=== PATIENT | female | born 1990 | race African-American/Black ===

== ENCOUNTER 2018-06-21 10:22 | Inpatient (IN) | payer OTHER ==
[2018-06-21 10:46] VITALS: BMI 39.9
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
[2018-06-21] MEDS ORDERED: guaiFENesin/D-METHORPHAN HB 10 ML UNIT-DOSE CUPS PO PRN (12:13)
[2018-06-21] MEDS ORDERED: LOPERAMIDE HCL 2 MG CAPSULE PO PRN (12:13)
[2018-06-21] MEDS ORDERED: MAG HYDROX/AL HYDROX/SIMETH 30 ML UNIT-DOSE CUP PO PRN (12:13)
[2018-06-21] MEDS ORDERED: MAGNESIUM CITRATE 300 ML BOTTLE PO PRN (12:13)
[2018-06-21] MEDS ORDERED: MENTHOL/PHENOL 1 EACH UD MM PRN (12:13)
[2018-06-21] MEDS ORDERED: P-EPHED 60MG/TRIPROLIDI 2.5MG TABLET PO PRN (12:13)
[2018-06-21] MEDS ORDERED: MAGNESIUM HYDROX 2400MG/30ML ORAL SUSPENSION 30 ML CUP PO PRN (12:13)
[2018-06-21] MEDS ORDERED: ACETAMINOPHEN 325 MG TABLET (FP) PO PRN (12:13)
[2018-06-21] MEDS ORDERED: chlordiazePOXIDE HCL 25 MG CAPSULE PO PRN (12:15)
[2018-06-21] MEDS: NICOTINE 21 MG/24 HOURS TOPICAL PATCH TD SCH (15:48)
[2018-06-21] MEDS: chlordiazePOXIDE HCL 25 MG CAPSULE PO SCH ×2 (17:59→22:36)
[2018-06-21 21:03] LABS: URINE APPEARANCE SLCLOUDY; URINE BILIRUBIN NEGATIVE (<2.0 mg/dL); URINE COLOR YELLOW; URINE GLUCOSE (UA) NEGATIVE (NEGATIVE); URINE KETONE NEGATIVE (NEGATIVE); URINE LEUK ESTERASE 1+ (NEGATIVE); URINE NITRITE NEGATIVE (NEGATIVE); URINE PROTEIN NEGATIVE (NEGATIVE)
[2018-06-21 21:10] LABS: EPI CELLS MANY /HPF (FEW); URINE MUCUS RARE
[2018-06-21] MEDS ORDERED: MELATONIN 5 MG TABLETS PO PRN (22:00)
[2018-06-21] MEDS: THIAMINE HCL 100 MG TABLET (FP) PO SCH (22:36)
[2018-06-22] MEDS: IBUPROFEN 400 MG TABLET (FP) PO PRN ×2 (06:40→17:42)
[2018-06-22] MEDS: chlordiazePOXIDE HCL 25 MG CAPSULE PO SCH ×2 (06:40→10:31)
[2018-06-22] MEDS ORDERED: PRENATAL VITAMINS W/ FOLIC ACID TABLET (FP) PO SCH (10:00)
[2018-06-22] MEDS: NICOTINE 21 MG/24 HOURS TOPICAL PATCH TD SCH (10:33)
[2018-06-22 11:24] LABS: ALBUMIN 3.2 g/dl (3.4-5.0); ALK PHOS 74 U/L (45-117); ANION GAP 9 MMOL/L (8-16); BILIRUBIN,TOTAL 0.6 mg/dL (0.2-1); BLOOD UREA NITROGEN 9 mg/dL (7-18); CALCIUM 8.5 mg/dL (8.5-10.1); CHLORIDE 106 mmol/L (98-107); CO2 25 mmol/L (21-32); CREATININE 0.9 mg/dL (0.55-1.3); GLUCOSE,RANDOM 105 mg/dL (74-106); POTASSIUM 3.8 mmol/L (3.5-5.1); SGOT/AST 15 U/L (15-37); SGPT/ALT 18 U/L (13-61); SODIUM 140 mmol/L (136-145); TOT PROT 6.9 g/dl (6.4-8.2)
[2018-06-22] MEDS ORDERED: COLLOIDAL OATMEAL 1 BAR EACH TP PRN (11:29)
[2018-06-22] MEDS ORDERED: MINERAL OIL/PETROLAT/WATER TOPICAL CREAM 113 GM JAR TP SCH (11:30)
--- NOTE | 2018-06-22 11:33 | PN ---
S CIWA - CIWA Score Nausea/Vomitin-Mild Nausea/No Vomiting Muscle Tremors: 3 Anxiety: 2 Agitation: 2 Paroxysmal Sweats: 1-Minimal Palms Moist Orientation: 1-Uncertain about Date Tacttile Disturbances: 1-Very Mild Itch/Numbness Auditory Disturbances: 0-None Visual Disturbances: 0-None Headache: 1-Very Mild CIWA-Ar Total Score: 12 BHS Progress Note (SOAP) Subjective: tremor sweat itchy skin Objective: 06/22/18 11:33 Vital Signs Temperature 98.6 F 06/22/18 09:27 Pulse Rate 90 06/22/18 09:27 Respiratory Rate 18 06/22/18 09:27 Blood Pressure 135/62 06/22/18 09:27 O2 Sat by Pulse Oximetry (%) Laboratory Last Values Sodium 140 mmol/L (136-145) 06/22/18 07:35 Potassium 3.8 mmol/L (3.5-5.1) 06/22/18 07:35 Chloride 106 mmol/L (98-107) 06/22/18 07:35 Carbon Dioxide 25 mmol/L (21-32) 06/22/18 07:35 Anion Gap 9 MMOL/L (8-16) 06/22/18 07:35 BUN 9 mg/dL (7-18) 06/22/18 07:35 Creatinine 0.9 mg/dL (0.55-1.3) 06/22/18 07:35 Creat Clearance w eGFR > 60 (>60) 06/22/18 07:35 Random Glucose 105 mg/dL (74-106) 06/22/18 07:35 Calcium 8.5 mg/dL (8.5-10.1) 06/22/18 07:35 Total Bilirubin 0.6 mg/dL (0.2-1) 06/22/18 07:35 AST 15 U/L (15-37) 06/22/18 07:35 ALT 18 U/L (13-61) 06/22/18 07:35 Alkaline Phosphatase 74 U/L (45-117) 06/22/18 07:35 Total Protein 6.9 g/dl (6.4-8.2) 06/22/18 07:35 Albumin 3.2 g/dl (3.4-5.0) L 06/22/18 07:35 Urine Color Yellow 06/21/18 14:46 Urine Appearance Slcloudy 06/21/18 14:46 Urine pH 7.0 (5.0-8.0) 06/21/18 14:46 Ur Specific [place] 1.025 (1.010-1.035) 06/21/18 14:46 Urine Protein Negative (NEGATIVE) 06/21/18 14:46 Urine Glucose (UA) Negative (NEGATIVE) 06/21/18 14:46 Urine Ketones Negative (NEGATIVE) 06/21/18 14:46 Urine Blood Negative (NEGATIVE) 06/21/18 14:46 Urine Nitrite Negative (NEGATIVE) 06/21/18 14:46 Urine Bilirubin Negative (<2.0 mg/dL) 06/21/18 14:46 Urine Urobilinogen 2.0 mg/dL (0.2-1.0) H 06/21/18 14:46 Ur Leukocyte Esterase 1+ (NEGATIVE) H 06/21/18 14:46 Urine WBC (Auto) 16 /hpf (3-5) 06/21/18 14:46 Urine RBC (Auto) 3 /hpf (0-3) 06/21/18 14:46 Ur Epithelial Cells Many /HPF (FEW) 06/21/18 14:46 Urine Mucus Rare 06/21/18 14:46 RPR Titer Nonreactive (NONREACTIVE) 06/22/18 07:35 lab noted uti Assessment: 06/22/18 11:35 withdrawal sx 06/22/18 11:36 uti Plan: continue detox bactrim ds bid
[2018-06-22 11:34] LABS: HEMOGLOBIN 14.7 GM/dL (10.7-15.3); MCH 32.5 pg (25.7-33.7); MCHC 34.1 g/dl (32.0-36.0); MEAN CELL VOLUME 95.3 fl (80-96); MEAN PLT VOLUME 8.9 fl (7.5-11.1); PLATELET COUNT 234 K/MM3 (134-434); RBC 4.52 M/mm3 (3.60-5.2); RDW 13.6 % (11.6-15.6); WHITE BLOOD COUNT 8.4 K/mm3 (4.0-10.0)
[2018-06-22] MEDS: SULFAMETHOXAZOLE/TRIMETHOPRIM 800MG/160MG D.S. TABLET PO SCH ×2 (14:53→22:33)
[2018-06-22] MEDS ORDERED: chlordiazePOXIDE HCL 25 MG CAPSULE PO SCH (17:00)
[2018-06-22] MEDS ORDERED: chlordiazePOXIDE 5 MG CAPSULE PO SCH (17:12)
[2018-06-22] MEDS: chlordiazePOXIDE 5 MG CAPSULE PO SCH ×2 (17:45→22:33)
[2018-06-22 21:22] VITALS: PULSE 85
[2018-06-22] MEDS: THIAMINE HCL 100 MG TABLET (FP) PO SCH (22:33)
[2018-06-23] MEDS: chlordiazePOXIDE 5 MG CAPSULE PO SCH (05:31)
[2018-06-23] MEDS: IBUPROFEN 400 MG TABLET (FP) PO PRN (05:32)
[2018-06-23 08:10] VITALS: BP 134/75; TEMP 98.2
--- NOTE | 2018-06-23 13:31 | PN ---
S CIWA - CIWA Score Nausea/Vomitin-No Nausea/No Vomiting Muscle Tremors: 3 Anxiety: 4-Mod. Anxious/Guarded Agitation: 3 Paroxysmal Sweats: 3 Orientation: 0-Oriented Tacttile Disturbances: 2-Mild Itch/Numbness/Burn Auditory Disturbances: 0-None Visual Disturbances: 0-None Headache: 0-None Present CIWA-Ar Total Score: 15 BHS Progress Note (SOAP) Subjective: Sweating, Interrupted sleep, Body Aches, Tremors, Diarrhea. Objective: PATIENT A & O X 3, OBSERVED AMBULATING ON UNIT. IN NO ACUTE DISTRESS. 06/23/18 13:28 Vital Signs Temperature 98.2 F 06/23/18 08:10 Pulse Rate 85 06/23/18 08:10 Respiratory Rate 18 06/23/18 08:10 Blood Pressure 134/75 06/23/18 08:10 O2 Sat by Pulse Oximetry (%) Laboratory Tests 06/21/18 06/22/18 06/22/18 14:46 07:35 07:35 WBC 8.4 RBC 4.52 Hgb 14.7 Hct 43.0 MCV 95.3 MCH 32.5 MCHC 34.1 RDW 13.6 Plt Count 234 MPV 8.9 Sodium 140 Potassium 3.8 Chloride 106 Carbon Dioxide 25 Anion Gap 9 BUN 9 Creatinine 0.9 Creat Clearance w eGFR > 60 Random Glucose 105 Calcium 8.5 Total Bilirubin 0.6 AST 15 ALT 18 Alkaline Phosphatase 74 Total Protein 6.9 Albumin 3.2 L Urine Color Yellow Urine Appearance Slcloudy Urine pH 7.0 Ur Specific [place] 1.025 Urine Protein Negative Urine Glucose (UA) Negative Urine Ketones Negative Urine Blood Negative Urine Nitrite Negative Urine Bilirubin Negative Urine Urobilinogen 2.0 H Ur Leukocyte Esterase 1+ H Urine WBC (Auto) 16 Urine RBC (Auto) 3 Ur Epithelial Cells Many Urine Mucus Rare RPR Titer 06/22/18 07:35 WBC RBC Hgb Hct MCV MCH MCHC RDW Plt Count MPV Sodium Potassium Chloride Carbon Dioxide Anion Gap BUN Creatinine Creat Clearance w eGFR Random Glucose Calcium Total Bilirubin AST ALT Alkaline Phosphatase Total Protein Albumin Urine Color Urine Appearance Urine pH Ur Specific [place] Urine Protein Urine Glucose (UA) Urine Ketones Urine Blood Urine Nitrite Urine Bilirubin Urine Urobilinogen Ur Leukocyte Esterase Urine WBC (Auto) Urine RBC (Auto) Ur Epithelial Cells Urine Mucus RPR Titer Nonreactive LABS NOTED. Assessment: 06/23/18 13:29 WITHDRAWAL SYMPTOMS. Plan: CONTINUE DETOX. INCREASE DAILY PO FLUID INTAKE. PRN IMMODIUM FOR DIARRHEA.
--- NOTE | 2018-06-23 14:16 | DS ---
[facility] Detox Discharge Summary Admission Date: 06/21/18 Discharge Date: 06/23/18 - History Present History: Alcohol Dependence, Cannabis Dependence, Cocaine Dependence Additional Comments: PATIENT DOES NOT WISH TO REMAIN TO COMPLETE DETOX REGIMEN. RISKS OF LEAVING DETOX UNIT AGAINST MEDICAL ADVICE AND PRIOR TO COMPLETION OF DETOX REGIMEN EXPLAINED TO PATIENT. PATIENT ADVISED TO GO IMMEDIATELY TO NEAREST ER SHOULD ANY INTOLERABLE DETOX SYMPTOMS DEVELOP AT ANY TIME. PATIENT VERBALIZED UNDERSTANDING OF ALL INFORMATION / RECOMMENDATIONS PRESENTED TO HIM PRIOR TO DEPARTURE FROM DETOX UNIT. PATIENT DECLINED TO ANSWER XRAY TECH'S QUESTIONS PERTAINING TO PRE-DISCHARGE (AMA) MEDICAL ASSESSMENT PRIOR TO LEAVING DETOX UNIT. Pertinent Past History: Ecstasy Use Disorder, History of Anemia, History of Suture Wound Of Head. - Physical Exam Results Vital Signs: Vital Signs Temperature 98.2 F 06/23/18 08:10 Pulse Rate 85 06/23/18 08:10 Respiratory Rate 18 06/23/18 08:10 Blood Pressure 134/75 06/23/18 08:10 O2 Sat by Pulse Oximetry (%) Pertinent Admission Physical Exam Findings: WITHDRAWAL SYMPTOMS. Laboratory Tests 06/21/18 06/22/18 06/22/18 14:46 07:35 07:35 WBC 8.4 RBC 4.52 Hgb 14.7 Hct 43.0 MCV 95.3 MCH 32.5 MCHC 34.1 RDW 13.6 Plt Count 234 MPV 8.9 Sodium 140 Potassium 3.8 Chloride 106 Carbon Dioxide 25 Anion Gap 9 BUN 9 Creatinine 0.9 Creat Clearance w eGFR > 60 Random Glucose 105 Calcium 8.5 Total Bilirubin 0.6 AST 15 ALT 18 Alkaline Phosphatase 74 Total Protein 6.9 Albumin 3.2 L Urine Color Yellow Urine Appearance Slcloudy Urine pH 7.0 Ur Specific [place] 1.025 Urine Protein Negative Urine Glucose (UA) Negative Urine Ketones Negative Urine Blood Negative Urine Nitrite Negative Urine Bilirubin Negative Urine Urobilinogen 2.0 H Ur Leukocyte Esterase 1+ H Urine WBC (Auto) 16 Urine RBC (Auto) 3 Ur Epithelial Cells Many Urine Mucus Rare RPR Titer 06/22/18 07:35 WBC RBC Hgb Hct MCV MCH MCHC RDW Plt Count MPV Sodium Potassium Chloride Carbon Dioxide Anion Gap BUN Creatinine Creat Clearance w eGFR Random Glucose Calcium Total Bilirubin AST ALT Alkaline Phosphatase Total Protein Albumin Urine Color Urine Appearance Urine pH Ur Specific [place] Urine Protein Urine Glucose (UA) Urine Ketones Urine Blood Urine Nitrite Urine Bilirubin Urine Urobilinogen Ur Leukocyte Esterase Urine WBC (Auto) Urine RBC (Auto) Ur Epithelial Cells Urine Mucus RPR Titer Nonreactive LABS NOTED. - Treatment Hospital Course: Detoxed Safely - Medication Discharge Medications: Ambulatory Orders Divalproex [Depakote -] 250 mg PO BID 06/21/18 Haloperidol [Haldol -] 5 mg PO BID 06/21/18 Sertraline HCl [Zoloft] 10 mg PO DAILY 06/21/18 - Diagnosis (1) Alcohol use disorder Status: Acute (2) Cannabis abuse Status: Acute (3) Cocaine use disorder Status: Acute (4) Ecstasy use disorder, moderate Status: Acute (5) Suture of skin wound Status: Acute (6) Tobacco use disorder Status: Acute - AMA Did Patient Leave Against Medical Advice: Yes (PATIENT DID NOT WISH TO REMAIN TO COMPLETE DETOX REGIMEN.)
[2018-06-23] MEDS ORDERED: chlordiazePOXIDE 5 MG CAPSULE PO SCH (17:00)
[2018-06-24] MEDS ORDERED: chlordiazePOXIDE 5 MG CAPSULE PO SCH (17:00)
== END 2018-06-23 09:43 | disposition left against medical advice (07) | DRG 770 ==
LOC: YASAS 10:22 → Y6N 12:44
PROVIDERS: ADMIT Neuromusculoskeletal Medicine & OMM; ATTEND Neuromusculoskeletal Medicine & OMM
PROC: HZ2ZZZZ Detoxification Services for Substance Abuse Treatment (ICD-10-PCS; principal; 2018-06-21)
DX: F10.230 Alcohol dependence with withdrawal, uncomplicated (principal); F14.20 Cocaine dependence, uncomplicated; F12.20 Cannabis dependence, uncomplicated; F16.20 Hallucinogen dependence, uncomplicated; F17.210 Nicotine dependence, cigarettes, uncomplicated; N39.0 Urinary tract infection, site not specified; D64.9 Anemia, unspecified; Z91.5 Personal history of self-harm; Z59.0 Homelessness
CPT/HCPCS: 36415; 80053; 81003; 81015; 85027; 86593